=== PATIENT | female | born 2000 | race Asian ===

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

== ENCOUNTER 2018-05-01 16:50 | Emergency (ER) | payer MEDICAID ==
[2018-05-01] MEDS ORDERED: fentaNYL 100 MCG/2 ML INJ NASAL ONE (18:15)
--- NOTE | 2018-05-01 18:15 | EDPHY ---
H & P Time Seen by Provider: 05/01/18 18:01 HPI/ROS: CHIEF COMPLAINT: "I have an abscess on my vagina" HISTORY OF PRESENT ILLNESS: 18-year-old immunocompetent female with up-to-date tetanus complaining of pain to the left labia for the past few days, progressive. Went to urgent care referred to the ER for evaluation of possible Bartholin gland abscess. PRIMARY CARE PROVIDER: REVIEW OF SYSTEMS: 10 systems reviewed and are negative with exception of illness mentioned in the history of present illness PHYSICAL EXAM (Prior to examination, patient consented to physical exam, hands were washed and my usual and customary physical exam procedures followed) 1) GENERAL: Well-developed, well-nourished, alert and oriented. Appears to be in no acute distress. 2) HEAD: Normocephalic 3) HEENT: sclera anicteric 4) LUNGS: Breathing comfortably. [5) ( with nurse Caro at bedside): Bartholin glance abscess on the left side. Smoking Status: Former smoker Constitutional: Initial Vital Signs Temperature (C) 36.7 C 05/01/18 17:03 Heart Rate 75 05/01/18 17:03 Respiratory Rate 17 05/01/18 17:03 Blood Pressure 115/93 H 05/01/18 17:03 O2 Sat (%) 92 05/01/18 17:03 O2 Delivery Mode Room Air Allergies/Adverse Reactions: No Known Allergies Allergy (Verified 05/01/18 17:08) Home Medications: Medication Instructions Recorded Hydrocodone/APAP 5/325 [[place] 1 - 2 each PO Q4-6PRN PRN #20 tab 04/21/16 5/325] Cephalexin [Keflex] 500 mg PO TID 7 Days cap 05/01/18 Hydrocodone/APAP 5/325 [[place] 1 tab PO Q6 PRN #7 tab 05/01/18 5/325 (RX)] MDM/Departure - MDM Procedures: Procedure: Bartholin cyst drainage. With female nurse Era in the patient's grandmother at bedside at all times, I obtained verbal consent from the patient to drain the abscess who was informed about the possibility of bleeding and pain. The abscess was incised with a scalpel and a moderate amount of purulent drainage was expressed. A Word catheter was placed by myself. The patient tolerated the procedure well. The procedure was performed by myself. Medications Given: Discontinued Medications Hydrocodone Bitart/Acetaminophen ([place] 5/325mg Prepack#6) 1 btl TAKEHOME EDNOW ONE Stop: 05/01/18 18:58 Last Admin: 05/01/18 18:58 Dose: 1 btl Cephalexin HCl (Keflex) 500 mg PO EDNOW ONE PRN Reason: Protocol Stop: 05/01/18 18:52 Last Admin: 05/01/18 18:56 Dose: 500 mg Fentanyl (Sublimaze) 100 mcg NASAL EDNOW ONE Stop: 05/01/18 18:16 Last Admin: 05/01/18 18:28 Dose: 100 mcg - Depart Disposition: Home, Routine, Self-Care Clinical Impression: Bartholin gland cyst Condition: Good Instructions: Cephalexin (By mouth), Hydrocodone/Acetaminophen (By mouth), Bartholin Cyst (ED), Incision and Drainage (ED) Additional Instructions: I recommend you take warm baths. Recommend you follow-up with OBGYN. Prescriptions: Cephalexin [Keflex] 500 mg PO TID 7 Days cap Hydrocodone/APAP 5/325 [[place] 5/325 (RX)] 1 tab PO Q6 PRN #7 tab PRN Reason: Pain, Severe Referrals: Carina Bazan MD [Medical Doctor] - 2-3 days, call for appt.
[2018-05-01] MEDS ORDERED: CEPHALEXIN 500 MG CAP PO ONE ×2 (18:49→18:51)
[2018-05-01] MEDS ORDERED: HYDROCOD/APAP 5/325 PREPACK#6 BTL TAKEHOME ONE ×2 (18:50→18:57)
[2018-05-01 19:06] VITALS: BP 142/78
== END 2018-05-01 19:06 | disposition home or self-care (01) ==
PROC: 0U9L0ZZ Drainage of Vestibular Gland, Open Approach (ICD-10-PCS; principal; 2018-05-01)
DX: N75.1 Abscess of Bartholin's gland (principal)
CPT/HCPCS: J3010